=== PATIENT | male | born 1990 | race Caucasian/White ===

== ENCOUNTER 2024-04-02 13:36 | Emergency (ER) | payer BC, OTHER, SELFPAY ==
[2024-04-02 13:38] VITALS: BP 132/90; PULSE 98; RESP 12; TEMP 36.6; O2SAT 98
[2024-04-02 15:14] VITALS: BP 128/93; PULSE 85; RESP 17; O2SAT 100
--- NOTE | 2024-04-02 15:24 | ED.GENADUL_ITS ---
Discharge Plan Disposition Patient Disposition: Home Condition: Stable Discharge Details Clinical Impression: Arm pain, left Primary Care Provider: Unknown,Unknown ED Provider: Thu Uribe Home Meds and New Rx's Prescriptions: No Action ibuprofen [Advil] 200 mg tablet 400 mg PO Q6H Discharge Instructions Additional Instructions: * Examination and x-ray imaging do not reveal any acute abnormality * symptoms may be from contusion of the nerve or a slight tear in your biceps tendon. * I recommend taking 600 mg of Motrin every 6 hours. If your symptoms are not improving or you do not regain normal use of your left arm without pain, please follow-up with your PCP as you may need outpatient MRI HPI General Date/Time Provider Initiated Documentation: 04/02/24 14:12 . Limitations to Documentation: no limitations . Information obtained by: patient . HPI Narrative: 33-year-old gentleman without significant past medical history presents for evaluation left arm pain. Reports that 2 days ago he was stacking wood when he struck the palm of his against the wood pile. He reports having a shooting pain immediately rating his left arm. He said that it felt like he hit his [employer] one bed in his wrist. He states that he had significant pain more around the left elbow. He reports that initially he had such significant pain with moving his arm, but this is improved. He has been taking aspirin a few times a day. He denies any numbness tingling or weakness at this time. Localizes the pain to the elbow area Related Data Home Medications ?Medication ?Instructions ?Recorded ?Confirmed ibuprofen 200 mg tablet (Advil) 400 mg PO Q6H 04/02/24 04/02/24 Allergies Allergy/AdvReac Type Severity Reaction Status Date / Time No Known Allergies Allergy Unverified 04/02/24 13:42 General Stated Complaint: Orthopedic MARC: 4 Exam Narrative Exam Narrative: Review of Systems: All systems reviewed & are unremarkable except as noted in HPI and below Well-developed, no acute distress Unlabored respiratory effort Left upper extremity with no obvious deformity, there is full range of motion at shoulder elbow and wrist, there is no obvious bicep tear, 2+ radial pulse Course Vital Signs Vital signs: Vital Signs Temperature 36.6 C 04/02/24 13:38 Pulse 98 H 04/02/24 13:38 Respiratory Rate 12 04/02/24 13:38 Blood Pressure 132/90 04/02/24 13:38 Pulse Oximetry 98 04/02/24 13:38 Temperature 36.6 C 04/02/24 13:38 Temperature Source Oral 04/02/24 13:38 Pulse 85 04/02/24 15:14 Pulse Rhythm Regular 04/02/24 15:14 Pulse Strength Normal 04/02/24 15:14 Respiratory Rate 17 04/02/24 15:14 Respiratory Effort Normal 04/02/24 15:14 Respiratory Depth Normal 04/02/24 15:14 Respiratory Pattern Normal 04/02/24 15:14 Blood Pressure 128/93 H 04/02/24 15:14 Blood Pressure Mean 104 04/02/24 15:14 Blood Pressure Position Sitting 04/02/24 15:14 Pulse Oximetry 100 04/02/24 15:14 Oxygen Delivery Method Room Air 04/02/24 15:14 Oxygen Flow Rate 0 04/02/24 15:14 Pain Level 8 04/02/24 13:38 Medical Decision Making Emergent evaluation of left arm pain. Initial differential includes fracture, tendon injury, partial muscle tear. I suspect that the patient had a contusion of his nerve resulting in the symptoms he described with the initial trauma. Although he did not hit or strike his elbow area, I suspect that this is just some residual neuropathy I do not appreciate a biceps tear. I will get an x-ray to evaluate for bony trauma. Advised to start NSAIDs and if symptoms do not improve, patient may need outpatient MRI to further evaluate. X-ray imaging of the left elbow is unremarkable for any bony process. I do recommend NSAID use and follow-up with PCP as needed if symptoms do not resolve. Quality:SDOH Health Related Social Needs: No Data to Display PFSH All Active Problems (Updated 04/02/24 @ 16:04 by Thu Uribe MD) Arm pain, left (Acute) Social History Smoking/Tobacco Use Status: Never Smoking risk assessment performed?: Yes Alcohol Intake: never Drug use: Never Substance use type: does not use Housing: house Do you feel safe at home: Yes Do you feel safe in your relationship?: Yes
--- NOTE | 2024-04-02 15:56 | DI.RAD_ITS ---
Exam(s) XR ELBOW LT COMPLETE EXAM: XR ELBOW LT COMPLETE CLINICAL HISTORY: LEFT ARM PAIN. TECHNIQUE: 2D digital imaging was performed. Three views. COMPARISON: No exams were available for comparison FINDINGS: BONES: No acute fracture is present. No bony destructive lesion is seen. JOINTS: The elbow is normally aligned. No joint effusion is seen. SOFT TISSUE: Normal. IMPRESSION: Unremarkable radiographs of the left elbow. DATA REPOSITORY: RADIATION DOSE DELIVERED:
== END 2024-04-02 16:10 | disposition home or self-care (01) ==
LOC: ER 16:25
PROVIDERS: Emergency Provider Emergency Medicine
DX: M79.602 Pain in left arm (principal); X50.0XXA Overexertion from strenuous movement or load, initial encounter
CPT/HCPCS: 99283; 73080